=== PATIENT | female | born 1985 | race Caucasian/White ===

== ENCOUNTER 2020-01-12 20:06 | Emergency (ER) | payer OTHER ==
[~2020-01-12] VITALS: Ht 160 cm; Wt 47.6 kg
[2020-01-12 20:58] LABS: URINE BILIRUBIN NEGATIVE (Negative); URINE BLOOD NEGATIVE (Negative); URINE CLARITY CLEAR; URINE COLOR YELLOW; URINE GLUCOSE-RANDOM NEGATIVE (Negative); URINE KETONES NEGATIVE (Negative); URINE LEUKOCYTES-REFLEX NEGATIVE (Negative); URINE NITRITE-REFLEX NEGATIVE (Negative); URINE PROTEIN NEGATIVE (Negative); URINE SPECIFIC GRAVITY >= 1.030 (1.005-1.030); URINE UROBILINOGEN 0.2 E.U./dl (0.2-1.0)
[2020-01-12 21:39] LABS: ABSOLUTE BASOPHILS 0.1 thou/uL (0.0-0.2); ABSOLUTE EOSINOPHILS 0.3 thou/uL (0.0-0.7); ABSOLUTE LYMPHOCYTES 2.7 thou/uL (0.8-5.3); ABSOLUTE MONOCYTES 0.8 thou/uL (0.0-1.2); ABSOLUTE NEUTROPHILS 7.3 thou/uL (1.6-8.1); BASOPHILS 0.6 %; EOSINOPHILS 2.9 %; HEMATOCRIT 40.2 % (37.0-47.0); HEMOGLOBIN 13.5 gm/dL (12.0-15.0); LYMPHOCYTES 24.1 %; MCH 31.4 pg (26.0-34.0); MCHC 33.6 g/dL (28.0-37.0); MCV 93.5 fL (80.0-100.0); MONOCYTES 7.5 %; MPV 7.4 fl. (7.2-11.1); NUCLEATED RBCS 0 /100WBC; PLATELET COUNT* 351 thou/uL (150-400); POLYS 64.9 %; RBC 4.29 mil/uL (4.20-5.00); WBC 11.3 thou/uL (4.0-11.0)
[2020-01-12 21:47] LABS: CALCIUM 8.6 mg/dL (8.5-10.1); CREATININE 0.6 mg/dL (0.6-1.3); POTASSIUM 3.4 mmol/L (3.5-5.1)
[2020-01-12 21:52] LABS: ALBUMIN 3.3 g/dL (3.4-5.0); TOTAL BILIRUBIN 0.3 mg/dL (<0.1-1.0); TOTAL PROTEIN 6.9 g/dL (6.4-8.2)
[2020-01-12] MEDS ORDERED: ONDANSETRON HCL4 M2 PO (23:03)
[2020-01-12 23:15] VITALS: BP 110/80
--- NOTE | 2020-01-13 11:42 | EKG ---
[place] [address] ELECTROCARDIOGRAM REPORT Name: HERRERA ALEJANDRO Room: [facility]#: [id number] Admission: 01/12/20 Attend Phys: Discharge: 01/12/20 Date of : 87 Date of Service: 01/12/202141 Report #: [id number] THIS REPORT FOR: //name// [facility] ED Test Date: 2020-01-12 Test Time: 21:42:05 Pat Name: HERRERA ALEJANDRO Department: Room: Gender: Grades 7 8 Tutor: ROCKY : 1985 Requested By: Mervat Daily Order Number: [id number] : Keith Bennett Measurements Intervals [place] Rate: 83 P: -52 FL: 173 QRS: 77 QRSD: 107 T: 55 QT: 386 QTc: 454 Interpretive Statements Sinus or ectopic atrial rhythm No previous ECG available for comparison Electronically Signed On 01-13-2020 11:40:59 LETTER SORTING MACHINE OPERATOR by Keith Bennett [email or web address] <ELECTRONICALLY SIGNED> By: Keith Bennett MD, [facility] 01/13/20 1140 41 41 Keith Bennett MD, FACC /EPI
== END 2020-01-12 23:15 | disposition home or self-care (01) ==
LOC: M.ERS 20:06
PROVIDERS: Emergency Medicine; Nurse Practitioner Family
DX: O21.9 Vomiting of pregnancy, unspecified (principal); R53.1 Weakness; Z88.8 Allergy status to other drugs, medicaments and biological substances; Z3A.01 Less than 8 weeks gestation of pregnancy